=== PATIENT | female | born 1990 | race Caucasian/White ===

== ENCOUNTER 2020-12-09 14:24 | Inpatient (IN) ==
[2020-12-09 17:21] LABS: Hematocrit 37.4 VOL% (35.7-47.0); Hemoglobin 12.4 GM/DL (12.0-16.0); Lymphocytes # 0.8 10*3/uL (1.4-4.0); Lymphocytes % 21.4 % (21.3-54.2); Mean Corpuscular HGB Conc 33.2 GM/DL (32-36); Mean Platelet Volume 11.1 FL (9.6-12.0); Monocytes % 3.2 % (1.7-12.7); Neutrophils % 75.4 % (38.7-73.9); Platelet Count 114 T/CUMM (130-400); Red Blood Count 4.02 MC/CUMM (3.8-5.5); Red Cell Distribution Width 12.1 % (9.3-17.3); White Blood Count 3.8 T/CUMM (4-12)
[2020-12-09 17:40] LABS: Alanine Aminotransferase 46 U/L (13-56); Albumin 3.8 G/DL (3.4-5.0); Alkaline Phosphatase 37 U/L (45-117); Aspartate Amino Transferase 55 U/L (0-37); Bilirubin,Total < 0.39 MG/DL (0.20-1.00); Blood Urea Nitrogen 12 MG/DL (7-18); Calcium 8.5 MG/DL (8.5-10.1); Carbon Dioxide 25 MMOL/L (21-32); Estimated Glom Filtration Rate 88 ML/MIN; Glucose 88 MG/DL (74-106); Osmolality,Calculated 273.7 MOS/KG (273-304); Potassium 3.5 MMOL/L (3.5-5.1); Sodium 138 MMOL/L (136-145); Total Protein 8.1 G/DL (6.4-8.2)
[2020-12-09] MEDS ORDERED: SODIUM CHLORIDE 0.9% 1,000 ML IV STA (18:06)
[2020-12-09] MEDS ORDERED: ONDANSETRON 4 MG/2 ML VIAL IV STA (18:06)
[2020-12-09 19:18] LABS: Ferritin 523.4 ng/ml (8-252)
[2020-12-09 19:33] LABS: Bilirubin,Urine Negative (Negative); Blood, Urine Negative (Negative); Glucose,Urine (UA) Negative (Negative); Hyaline Casts,Urine 38 /LPF (0-3); Ketones,Urine Negative (Negative); Mucus,Urine Many /LPF (Occasional); Nitrite,Urine Negative (Negative); Protein,Urine 100 MG/DL; RBC,Urine 8 /HPF (0-4); Squamous Epithelial Cell,Urine Occasional /HPF (0-10); Urine Appearance CLOUDY (Clear); Urine Color Amber (Yellow); Urine Specific Gravity 1.035 (1.001-1.035); Urine Urobilinogen < 2.0 EU/DL (0.2-1.0); White Blood Cell Casts,Urine 68 /LPF (<1)
[2020-12-09] MEDS ORDERED: PROMETHAZINE 25 MG/1 ML VIAL IM STA (20:17)
[2020-12-10] MEDS ORDERED: GLUCAGON 1 MG VIAL IM PRN (00:13)
[2020-12-10] MEDS ORDERED: DEXTROSE 50% 25 GM/50 ML VIAL IV PRN (00:13)
[2020-12-10] MEDS ORDERED: PROMETHAZINE INJ 25 MG in SODIUM CHLORIDE 0.9% 50 ML IV PRN (00:18)
[2020-12-10] MEDS ORDERED: AZITHROMYCIN INJ 500 MG in SODIUM CHLORIDE 0.9% 250 ML IV ONE (01:08)
[2020-12-10] MEDS ORDERED: PANTOPRAZOLE 40 MG VIAL IV STA (01:09)
[2020-12-10] MEDS: SODIUM CHLORIDE 0.9% 1,000 ML IV SCH ×3 (03:31→17:00)
[2020-12-10] MEDS: ENOXAPARIN 40 MG/0.4 ML SYRINGE SUBCUT SCH (03:31)
[2020-12-10] MEDS: ACETAMINOPHEN 325 MG TABLET PO PRN (03:42)
[2020-12-10] MEDS: KETOROLAC 30 MG/1 ML VIAL IV PRN (03:42)
[2020-12-10 04:17] LABS: Hematocrit 32.8 VOL% (35.7-47.0); Hemoglobin 11.1 GM/DL (12.0-16.0); Immature Granulocytes % 0.8 %; Immature Granulocytes Absolute 0.02 #; Lymphocytes # 0.7 10*3/uL (1.4-4.0); Mean Corpuscular HGB Conc 33.8 GM/DL (32-36); Mean Corpuscular Volume 91.4 FL (87-102); Mean Platelet Volume 11.9 FL (9.6-12.0); Monocytes % 3.5 % (1.7-12.7); Neutrophils % 68.7 % (38.7-73.9); Platelet Count 100 T/CUMM (130-400); Red Blood Count 3.59 MC/CUMM (3.8-5.5); Red Cell Distribution Width 11.9 % (9.3-17.3); White Blood Count 2.6 T/CUMM (4-12)
[2020-12-10 04:37] LABS: Band Neutrophils 2 % (0-10); Hypochromasia 1+; Lymphocytes 28 % (20-55); Microcytosis 1+; Platelet Estimate Decreased; Segmented Neutrophils 64 % (50-85); Total Cells Counted 100
[2020-12-10 05:13] LABS: Albumin 3.3 G/DL (3.4-5.0); Bilirubin,Total 0.4 MG/DL (0.20-1.00); Calcium 8.1 MG/DL (8.5-10.1); Osmolality,Calculated 273.7 MOS/KG (273-304); Potassium 3.3 MMOL/L (3.5-5.1); Total Protein 7.2 G/DL (6.4-8.2)
[2020-12-10] MEDS ORDERED: REMDESIVIR 200 MG in SODIUM CHLORIDE 0.9% 210 ML IV ONE (10:00)
[2020-12-10] MEDS: cefTRIAXone 1,000 MG in SODIUM CHLORIDE 0.9% 100 ML IV SCH (10:26)
[2020-12-10] MEDS: DEXAMETHASONE 4 MG/1 ML VIAL IV SCH (10:28)
[2020-12-10] MEDS: FAMOTIDINE 20 MG TABLET PO SCH ×2 (10:29→21:09)
[2020-12-10] MEDS: ZINC GLUCONATE 50 MG TABLET PO SCH (10:29)
[2020-12-10] MEDS: ASCORBIC ACID 500 MG TABLET PO SCH ×2 (10:29→21:09)
[2020-12-10] MEDS: CETIRIZINE 10 MG TABLET PO SCH (10:29)
[2020-12-10] MEDS: CHOLECALCIFEROL 1,000 UNIT TABLET PO SCH (10:30)
[2020-12-10] MEDS: ONDANSETRON 4 MG/2 ML VIAL IV PRN (11:25)
[2020-12-10] MEDS: MELATONIN 3 MG TABLET PO SCH (21:09)
[2020-12-11] MEDS: SODIUM CHLORIDE 0.9% 1,000 ML IV SCH ×3 (00:03→17:31)
[2020-12-11] MEDS: ENOXAPARIN 40 MG/0.4 ML SYRINGE SUBCUT SCH (00:57)
[2020-12-11] MEDS: ACETAMINOPHEN 325 MG TABLET PO PRN ×2 (00:57→10:51)
[2020-12-11 06:28] LABS: Hematocrit 33.6 VOL% (35.7-47.0); Hemoglobin 11.5 GM/DL (12.0-16.0); Immature Granulocytes % 0.3 %; Immature Granulocytes Absolute 0.01 #; Lymphocytes # 0.9 10*3/uL (1.4-4.0); Lymphocytes % 24.4 % (21.3-54.2); Mean Corpuscular HGB Conc 34.2 GM/DL (32-36); Mean Corpuscular Volume 90.3 FL (87-102); Mean Platelet Volume 11.5 FL (9.6-12.0); Monocytes % 3.7 % (1.7-12.7); Neutrophils % 71.6 % (38.7-73.9); Platelet Count 87 T/CUMM (130-400); Red Blood Count 3.72 MC/CUMM (3.8-5.5); Red Cell Distribution Width 11.9 % (9.3-17.3); White Blood Count 3.8 T/CUMM (4-12)
[2020-12-11 06:54] LABS: Ferritin 1128.1 ng/ml (8-252); Osmolality,Calculated 273.5 MOS/KG (273-304); Potassium 3.6 MMOL/L (3.5-5.1)
[2020-12-11] MEDS: ASCORBIC ACID 500 MG TABLET PO SCH ×2 (08:40→20:14)
[2020-12-11] MEDS: ZINC GLUCONATE 50 MG TABLET PO SCH (08:40)
[2020-12-11] MEDS: CHOLECALCIFEROL 1,000 UNIT TABLET PO SCH (08:40)
[2020-12-11] MEDS: CETIRIZINE 10 MG TABLET PO SCH (08:40)
[2020-12-11] MEDS: DEXAMETHASONE 4 MG/1 ML VIAL IV SCH (08:41)
[2020-12-11] MEDS: FAMOTIDINE 20 MG TABLET PO SCH ×2 (08:41→20:14)
[2020-12-11] MEDS: cefTRIAXone 1,000 MG in SODIUM CHLORIDE 0.9% 100 ML IV SCH (08:42)
[2020-12-11] MEDS ORDERED: AZITHROMYCIN 250 MG TABLET PO SCH (09:00)
[2020-12-11] MEDS: REMDESIVIR 100 MG in SODIUM CHLORIDE 0.9% 100 ML IV SCH (09:52)
[2020-12-11] MEDS: AZITHROMYCIN INJ 500 MG in SODIUM CHLORIDE 0.9% 250 ML IV SCH (09:53)
[2020-12-11 12:11] LABS: Ovalocytes 1+; Platelet Estimate Decreased
[2020-12-11] MEDS ORDERED: MAGNESIUM SULF RIDER 2 GM/50 ML PREMIX IV PRN (12:13)
[2020-12-11] MEDS ORDERED: POTASSIUM CHLORIDE 20 MEQ TABLET PO PRN (12:13)
[2020-12-11] MEDS ORDERED: MAGNESIUM SULF RIDER 4 GM/100 ML PREMIX IV PRN (12:13)
[2020-12-11] MEDS ORDERED: POTASSIUM BICARB EFFERVESCENT 20 MEQ TAB.EFF PO PRN (12:19)
[2020-12-11] MEDS: MELATONIN 3 MG TABLET PO SCH (20:13)
[2020-12-12] MEDS: ENOXAPARIN 40 MG/0.4 ML SYRINGE SUBCUT SCH ×2 (00:47→23:56)
[2020-12-12] MEDS: SODIUM CHLORIDE 0.9% 1,000 ML IV SCH ×4 (04:45→15:00)
[2020-12-12 06:25] LABS: Osmolality,Calculated 280.3 MOS/KG (273-304); Potassium 3.6 MMOL/L (3.5-5.1)
[2020-12-12] MEDS: DEXAMETHASONE 4 MG/1 ML VIAL IV SCH (08:51)
[2020-12-12] MEDS: CHOLECALCIFEROL 1,000 UNIT TABLET PO SCH (08:52)
[2020-12-12] MEDS: ASCORBIC ACID 500 MG TABLET PO SCH ×2 (08:52→20:53)
[2020-12-12] MEDS: AZITHROMYCIN INJ 500 MG in SODIUM CHLORIDE 0.9% 250 ML IV SCH (08:52)
[2020-12-12] MEDS: ZINC GLUCONATE 50 MG TABLET PO SCH (08:52)
[2020-12-12] MEDS: FAMOTIDINE 20 MG TABLET PO SCH ×2 (08:52→20:52)
[2020-12-12] MEDS: CETIRIZINE 10 MG TABLET PO SCH (08:52)
[2020-12-12] MEDS: REMDESIVIR 100 MG in SODIUM CHLORIDE 0.9% 100 ML IV SCH (09:54)
[2020-12-12] MEDS: cefTRIAXone 1,000 MG in SODIUM CHLORIDE 0.9% 100 ML IV SCH (10:29)
[2020-12-12] MEDS: MELATONIN 3 MG TABLET PO SCH (20:53)
[2020-12-13] MEDS: SODIUM CHLORIDE 0.9% 1,000 ML IV SCH ×3 (02:14→23:42)
[2020-12-13] MEDS: DEXAMETHASONE 4 MG/1 ML VIAL IV SCH (09:35)
[2020-12-13] MEDS: CHOLECALCIFEROL 1,000 UNIT TABLET PO SCH (09:36)
[2020-12-13] MEDS: ASCORBIC ACID 500 MG TABLET PO SCH ×2 (09:36→21:38)
[2020-12-13] MEDS: FAMOTIDINE 20 MG TABLET PO SCH ×2 (09:36→21:38)
[2020-12-13] MEDS: ZINC GLUCONATE 50 MG TABLET PO SCH (09:36)
[2020-12-13] MEDS: REMDESIVIR 100 MG in SODIUM CHLORIDE 0.9% 100 ML IV SCH (09:37)
[2020-12-13] MEDS: CETIRIZINE 10 MG TABLET PO SCH (09:37)
[2020-12-13] MEDS: cefTRIAXone 1,000 MG in SODIUM CHLORIDE 0.9% 100 ML IV SCH (09:39)
[2020-12-13] MEDS: AZITHROMYCIN INJ 500 MG in SODIUM CHLORIDE 0.9% 250 ML IV SCH (10:56)
[2020-12-13] MEDS: ALBUTEROL INHALER 18 GM INH SCH ×2 (15:28→18:25)
[2020-12-13] MEDS: MELATONIN 3 MG TABLET PO SCH (21:38)
[2020-12-13] MEDS: ONDANSETRON 4 MG/2 ML VIAL IV PRN (22:53)
[2020-12-14] MEDS: ENOXAPARIN 40 MG/0.4 ML SYRINGE SUBCUT SCH ×2 (00:23→23:38)
[2020-12-14] MEDS: SODIUM CHLORIDE 0.9% 1,000 ML IV SCH ×6 (00:38→21:29)
[2020-12-14] MEDS: ALBUTEROL INHALER 18 GM INH SCH ×7 (00:56→23:38)
[2020-12-14 06:53] LABS: Hematocrit 32.1 VOL% (35.7-47.0); Hemoglobin 10.7 GM/DL (12.0-16.0); Immature Granulocytes % 0.4 %; Immature Granulocytes Absolute 0.01 #; Lymphocytes # 0.7 10*3/uL (1.4-4.0); Lymphocytes % 24.7 % (21.3-54.2); Mean Corpuscular HGB Conc 33.3 GM/DL (32-36); Mean Corpuscular Volume 92.2 FL (87-102); Mean Platelet Volume 11.2 FL (9.6-12.0); Neutrophils % 67.9 % (38.7-73.9); Platelet Count 136 T/CUMM (130-400); Red Blood Count 3.48 MC/CUMM (3.8-5.5); Red Cell Distribution Width 11.9 % (9.3-17.3); White Blood Count 2.7 T/CUMM (4-12)
[2020-12-14 07:15] LABS: Hypochromasia 1+; Microcytosis 1+; Platelet Estimate Normal
[2020-12-14 07:37] LABS: Blood Urea Nitrogen 11 MG/DL (7-18); Calcium 7.9 MG/DL (8.5-10.1); Carbon Dioxide 23 MMOL/L (21-32); Estimated Glom Filtration Rate 162 ML/MIN; Ferritin 786.9 ng/ml (8-252); Glucose 97 MG/DL (74-106); Osmolality,Calculated 275.5 MOS/KG (273-304); Potassium 3.8 MMOL/L (3.5-5.1); Sodium 139 MMOL/L (136-145)
[2020-12-14] MEDS: ASCORBIC ACID 500 MG TABLET PO SCH ×2 (08:21→20:51)
[2020-12-14] MEDS: CETIRIZINE 10 MG TABLET PO SCH (08:21)
[2020-12-14] MEDS: CHOLECALCIFEROL 1,000 UNIT TABLET PO SCH (08:21)
[2020-12-14] MEDS: FAMOTIDINE 20 MG TABLET PO SCH ×2 (08:21→20:51)
[2020-12-14] MEDS: ZINC GLUCONATE 50 MG TABLET PO SCH (08:21)
[2020-12-14] MEDS: REMDESIVIR 100 MG in SODIUM CHLORIDE 0.9% 100 ML IV SCH (08:29)
[2020-12-14] MEDS: AZITHROMYCIN INJ 500 MG in SODIUM CHLORIDE 0.9% 250 ML IV SCH (08:29)
[2020-12-14] MEDS: DEXAMETHASONE 4 MG/1 ML VIAL IV SCH (08:41)
[2020-12-14] MEDS: cefTRIAXone 1,000 MG in SODIUM CHLORIDE 0.9% 100 ML IV SCH (08:42)
[2020-12-14] MEDS: KETOROLAC 30 MG/1 ML VIAL IV PRN (09:05)
[2020-12-14] MEDS: ACETAMINOPHEN 325 MG TABLET PO PRN (09:06)
[2020-12-14] MEDS: diphenhydrAMINE CAP 50 MG CAPSULE PO PRN ×2 (10:21→22:15)
[2020-12-14] MEDS: MELATONIN 3 MG TABLET PO SCH (20:51)
[2020-12-15] MEDS: ALBUTEROL INHALER 18 GM INH SCH ×4 (04:29→14:08)
[2020-12-15 05:02] VITALS: BP 106/68
[2020-12-15] MEDS: SODIUM CHLORIDE 0.9% 1,000 ML IV SCH ×3 (05:06→11:29)
[2020-12-15] MEDS: DEXAMETHASONE 4 MG/1 ML VIAL IV SCH (08:16)
[2020-12-15] MEDS: ZINC GLUCONATE 50 MG TABLET PO SCH (08:16)
[2020-12-15] MEDS: CHOLECALCIFEROL 1,000 UNIT TABLET PO SCH (08:16)
[2020-12-15] MEDS: FAMOTIDINE 20 MG TABLET PO SCH (08:16)
[2020-12-15] MEDS: CETIRIZINE 10 MG TABLET PO SCH (08:16)
[2020-12-15] MEDS: ASCORBIC ACID 500 MG TABLET PO SCH (08:16)
[2020-12-15] MEDS: AZITHROMYCIN INJ 500 MG in SODIUM CHLORIDE 0.9% 250 ML IV SCH (08:19)
[2020-12-15] MEDS: cefTRIAXone 1,000 MG in SODIUM CHLORIDE 0.9% 100 ML IV SCH (09:39)
== END 2020-12-15 15:46 | disposition home or self-care (01) | DRG 137 ==
LOC: N.ED 14:24 → N.EDINP 14:24 → N.CC 12-10 16:05
PROVIDERS: ADMIT Internal Medicine; ATTEND Internal Medicine